=== PATIENT | male | born 1990 | race Caucasian/White ===

== ENCOUNTER 2017-05-20 08:49 | Inpatient (IN) ==
[2017-05-20] MEDS ORDERED: NS 1,000 ML IV ONE (09:34)
[2017-05-20] MEDS ORDERED: HUMULIN R IV ONE (09:34)
[2017-05-20 09:45] LABS: URINE MICRO REVIEW NEEDED? NO; URINE SOURCE CLEAN CATCH
[2017-05-20 09:48] LABS: ALLEN TEST YES; BE 11.1 mmoll (-3.0-3.0); BLOOD TYPE ARTERIAL; DRAW SITE R RADIAL; METHB 1.3 % (0.0-1.5); O2(CT) 19.3 mL/dL (15.0-23.0); PCO2(98.6) 46 mmHg (35-45); PO2(98.6) 83 mmHg (60-100); SAMPLE BLOOD; SAO2 98.9 % (95.0-100.0); THB 14.4 g/dL (11.5-17.4)
[2017-05-20 09:49] LABS: MODALITY ROOM AIR
[2017-05-20 09:49] LABS: BILIRUBIN URINE NEGATIVE (NEGATIVE); BLOOD URINE SMALL (NEGATIVE); COLOR YELLOW; GLUCOSE URINE >1000 mg/dL (NEGATIVE); LEUKOCYTES URINE LARGE (NEGATIVE); NITRITE URINE NEGATIVE (NEGATIVE); PH URINE 5.5; PROTEIN URINE 70 mg/dL (NEGATIVE); SP GRAVITY URINE 1.017; TURBIDITY URINE HAZY (CLEAR); UR EPITHELIAL CELLS <10 /HPF (<10); URINE BACTERIA 4+ /HPF; URINE CULTURE NEEDED? YES; URINE RBC <10 /HPF (<10); URINE WBC TNTC /HPF (<10); UROBILINOGEN URINE NORMAL (NORMAL)
[2017-05-20 09:54] LABS: BASO% 0.1 % (0.0-0.8); EOS# 0.03 X1000 (0.0-0.7); EOS% 0.2 % (0.0-10.0); HEMATOCRIT 38.2 % (42.0-52.0); HEMOGLOBIN 14.4 g/dL (14.0-18.0); IMM GRAN# 0.03 X1000 (0.0-0.04); IMM GRAN% 0.2 % (0.0-0.5); LYMPH# 1.07 X1000 (1.2-3.4); LYMPH% 7.4 % (20.5-51.1); MANUAL DIFF NEEDED? NO; MCH 29.1 PG (27-31); MCHC 37.7 g/dL (33-37); MCV 77.2 FL (81-99); MONO# 1.39 X1000 (0.11-0.59); MONO% 9.6 % (1.7-9.3); MPV 12.1 FL (7.4-10.4); NEUT% 82.5 % (42.2-75.2); PLT 340 X1000 (130-400); RBC 4.95 XMIL (4.7-6.1)
[2017-05-20] MEDS ORDERED: ROCEPHIN 1 GM in NS 50 ML IV ONE (10:02)
[2017-05-20 10:25] LABS: AGAP 16; ALKALINE PHOSPHATASE 115 U/L (32-122); BUN 26 mg/dL (8-22); CALCIUM 9.5 mg/dL (8.8-10.2); CHLORIDE 82 mmol/L (98-107); COSMO 280; GOT 16 U/L (10-34); GPT 16 U/L (10-44); SODIUM 129 mmol/L (136-145); TCO2 31 mmol/L (25-35); TOTAL BILIRUBIN 0.45 mg/dL (0.20-1.00)
[2017-05-20 10:47] LABS: POTASSIUM 2.5 mmol/L (3.5-5.1)
[2017-05-20 10:50] LABS: ACETONE SERUM MODERATE (NEGATIVE)
[2017-05-20] MEDS ORDERED: NS + KCL 20 MEQ 1,000 ML IV SCH (10:53)
[2017-05-20] MEDS ORDERED: ZOFRAN IV ONE (11:05)
--- NOTE | 2017-05-20 11:12 | PROVIDER DOCUMENTATION ---
This chart was entered by Merry Lorenzana Scribe, acting as scribe for Sachin Sen PA. HPI-General Adult - General Chief Complaint: High Blood Sugar Stated Complaint: "NOT SURE IF SUGAR IS HIGH OR LOW" Time Seen by Provider: 05/20/17 09:23 Source: patient Allergies/Adverse Reactions: Patient Allergies Allergy/AdvReac Type Severity Reaction Status Date / Time piperacillin sodium * Allergy Intermediate HIVES Verified 05/20/17 09:38 [From Zosyn] tazobactam sodium * Allergy Intermediate HIVES Verified 05/20/17 09:38 [From Zosyn] Home Medications: Home Medication List Medication Instructions Recorded Confirmed Last Taken Type Gabapentin [Neurontin] 100 mg PO TID@0900,1500,2100 #90 12/23/15 Unknown Rx capsule Insulin Detemir [Levemir] 45 unit SUBQ BID #1 insuln.pen 12/23/15 Unknown Rx Magnesium Oxide [Mag-Ox] 400 mg PO BID #60 tablet 12/23/15 Unknown Rx Oxybutynin E.r. [Ditropan Xl] 5 mg PO QHS #30 tablet 12/23/15 Unknown Rx Valproic Acid [Depakene Liquid] 250 mg PO BID #60 udc 12/23/15 Unknown Rx Azithromycin [Zithromax Z-Sherif] 250 mg PO DIRECTED #1 pkg 02/03/17 Unknown Rx Ketorolac [Toradol] 10 mg PO Q6H PRN PRN #6 tablet 02/03/17 Unknown Rx - History of Present Illness -Gen Adult Nature of Presenting Problems: Pt is a 27 year old male who came to the ED with a cc of high blood sugar and n/ v for three days. Pt reports that he hasn't been taking his insulin since he started his new job. Pt checked his blood sugar this morning and it was 500. . Location of Pain/Injury: reports: none Pain Radiation: reports: no radiation Quality of Pain: reports: none Severity: reports: mild Onset/Duration: reports: 3 days ago Timing: reports: still present Context/Activities at Onset: reports: none Modifying Factors: improves with: nothing Associated Symptoms: reports: nausea, vomiting Similar Symptoms Previously?: Yes Recently seen or treated by another doctor?: No - Diabetes Related Context Context: reports: high blood sugar Review of Systems - Adult - REVIEW OF SYSTEMS - ADULT Constitutional: denies: chills, fever Eyes: reports: no symptoms reported Ears, Nose, Mouth & Throat: reports: no symptoms reported Cardiovascular: reports: irregular heart rate. denies: chest pain, orthopnea Respiratory: reports: no symptoms reported Gastrointestinal: reports: nausea, vomiting. denies: abdominal pain, diarrhea Genitourinary: reports: no symptoms reported Musculoskeletal: reports: no symptoms reported Integumentary: reports: no symptoms reported Neurological: reports: no symptoms reported Psychiatric: reports: no symptoms reported Endocrine: reports: other (high blood sugar). denies: cold intolerance, heat intolerance Hematologic/Lymphatic: reports: no symptoms reported Allergic/Immunologic: reports: no symptoms reported All Other Systems: Reviewed and Negative Past History - Adult - PAST MEDICAL HISTORY-ADULT Review of Records: reports: Nursing Assessment Review Major Childhood Illnesses: reports: denies history Cardiovascular: reports: denies history Respiratory: reports: denies history Gastrointestinal: reports: denies history Obstetrical/Gynecological: reports: denies history Genitourinary: reports: denies history Musculoskeletal: reports: denies history Neurological: reports: denies history Endocrine/Immune: reports: Diabetes Other Conditions: reports: denies history - IMMUNIZATION STATUS Childhood Immunizations: See Nurse Assessment Flu Vaccine: See Nurse Assessment - FAMILY HISTORY Family History: reviewed, not pertinent Physical Exam-General - PHYSICAL EXAM-ADULT Initial Vital Signs Reviewed: Yes - CONSTITUTIONAL General Appearance: appears well, alert, no apparent distress - EYES Eyes: PERRL/EOMI, pink conjunctivae - HEAD, EARS, NOSE, MOUTH & THROAT HENMT: normocephalic/atraumatic, moist mucous membranes - NECK Neck: non-tender, full range of motion - RESPIRATORY Respiratory: chest non-tender, lungs clear, normal breath sounds - CARDIOVASCULAR Cardiovascular: tachycardia - GASTROINTESTINAL (ABDOMEN) Abdominal Exam: normal bowel sounds, non tender, soft - MUSCULOSKELETAL Back Exam: normal inspection, no CVA tenderness Extremity: normal range of motion, non-tender - SKIN Integumentary: normal color, normal turgor - NEUROLOGIC Neurologic: grossly normal - PSYCHIATRIC Psych/Mental Status: normal mood/affect, normal thought content, normal thought process, oriented x 3 Progress - PLAN OF CARE/RESULTS Progress/Plan/Lab Results: Vital Signs - 8 hr 05/20/17 08:58 Temperature 98.0 F Pulse Rate 98 H Respiratory Rate 20 Blood Pressure 172/104 O2 Sat by Pulse Oximetry 100 Laboratory Results - last 24 hr 05/20/17 05/20/17 05/20/17 09:00 09:17 09:17 WBC 14.41 H RBC 4.95 Hgb 14.4 Hct 38.2 L MCV 77.2 L MCH 29.1 MCHC 37.7 H RDW Std Deviation 12.1 Plt Count 340 MPV 12.1 H Immature Gran % (Auto) 0.2 Neut % (Auto) 82.5 H Lymph % (Auto) 7.4 L [place] % (Auto) 9.6 H Eos % (Auto) 0.2 Baso % (Auto) 0.1 Immature Gran # (Auto) 0.03 Neut # (Auto) 11.88 H Lymph # (Auto) 1.07 L [place] # (Auto) 1.39 H Eos # (Auto) 0.03 Baso # (Auto) 0.01 Specimen Type Sample Site pH pCO2 pO2 HCO3 Base Excess Oxyhemoglobin ABG O2 Sat (Calculated) ABG O2 Saturation ABG Carboxyhemoglobin ABG Methemoglobin J Carlos Test A-a O2 Difference Total Hemoglobin Lactate Blood Gas Modality FiO2 % Sodium 129 L Potassium 2.5 L* Chloride 82 L Carbon Dioxide 31 Anion Gap 16 BUN 26 H Creatinine 1.3 H Estimated GFR/1.73 m2 > 60 BUN/Creatinine Ratio 20 Glucose 386 H POC Glucose 420 H D Calculated Osmolality 280 Calcium 9.5 Total Bilirubin 0.45 AST 16 ALT 16 Alkaline Phosphatase 115 Total Protein 7.0 Albumin 4.0 Globulin 3.0 Albumin/Globulin Ratio 1.3 Urine Source Urine Color Urine Turbidity Urine pH Ur Specific [place] Urine Protein Ur Glucose (Stick) Ur Ketones (Stick) Urine Blood Urine Nitrite Urine Bilirubin Urobilinogen Dipstick Urine Leukocytes Urine WBC (Auto) Urine RBC (Auto) U Epithel Cells (Auto) Urine Bacteria (Auto) Acetone Level MODERATE A 05/20/17 05/20/17 09:17 09:35 WBC RBC Hgb Hct MCV MCH MCHC RDW Std Deviation Plt Count MPV Immature Gran % (Auto) Neut % (Auto) Lymph % (Auto) [place] % (Auto) Eos % (Auto) Baso % (Auto) Immature Gran # (Auto) Neut # (Auto) Lymph # (Auto) [place] # (Auto) Eos # (Auto) Baso # (Auto) Specimen Type ARTERIAL Sample Site R RADIAL pH 7.50 H pCO2 46 H pO2 83 HCO3 33.5 H Base Excess 11.1 H Oxyhemoglobin 95.1 ABG O2 Sat (Calculated) 19.3 ABG O2 Saturation 98.9 ABG Carboxyhemoglobin 2.60 H ABG Methemoglobin 1.3 J Carlos Test YES A-a O2 Difference 9.0 Total Hemoglobin 14.4 Lactate 0.90 Blood Gas Modality ROOM AIR FiO2 % 21.0 Sodium Potassium Chloride Carbon Dioxide Anion Gap BUN Creatinine Estimated GFR/1.73 m2 BUN/Creatinine Ratio Glucose POC Glucose Calculated Osmolality Calcium Total Bilirubin AST ALT Alkaline Phosphatase Total Protein Albumin Globulin Albumin/Globulin Ratio Urine Source CLEAN CATCH Urine Color YELLOW Urine Turbidity HAZY Urine pH 5.5 Ur Specific [place] 1.017 Urine Protein 70 A Ur Glucose (Stick) >1000 A Ur Ketones (Stick) 20 A Urine Blood SMALL A Urine Nitrite NEGATIVE Urine Bilirubin NEGATIVE Urobilinogen Dipstick NORMAL Urine Leukocytes LARGE A Urine WBC (Auto) TNTC A Urine RBC (Auto) <10 U Epithel Cells (Auto) <10 Urine Bacteria (Auto) 4+ Acetone Level Orders Category Date Time Status Saline Loc NOW Care 05/20/17 09:25 Active ABG [RESP] Routine Lab 05/20/17 09:35 Completed ACETONE SERUM [CHEM] Stat Lab 05/20/17 09:17 Completed CBC WITH ELECTRONIC DIFF [HEME] Stat Lab 05/20/17 09:17 Completed COMPREHENSIVE METABOLIC PANEL [CHEM] Stat Lab 05/20/17 09:17 Completed URINALYSIS W/POSS RFLX CULT-1 [URINALYSIS] Stat Lab 05/20/17 09:17 Completed URINE CULTURE [RM] Routine Lab 05/20/17 09:52 Received 0.9% Sodium Chloride Inj [Ns] 1,000 ml Med 05/20/17 09:34 Discontinued IV 999 mls/hr CefTRIAXONE [Rocephin] 1 gm Med 05/20/17 10:02 Discontinued 0.9% Sodium Chloride Inj [Ns] 50 ml IV NOW Insulin Human Regular [Humulin R] Med 05/20/17 09:34 Discontinued 10 unit IV NOW ONE Ns + KCl 20 Meq 1,000 ml Med 05/20/17 10:53 Ordered IV 500 mls/hr Will admit to hospitalist service. Attending in agreement. Result Diagrams: 05/20/17 09:17 05/20/17 09:17 - CONSULTS/PCP/HOSPITALIST Notification #1 *Consult/PCP/Hospitalist*: Hospitalist service Time Discussed: 11:10 Consult Disposition: Admit Departure - Departure Date of Disposition Decision: 05/20/17 Time of Disposition Decision: 11:11 DIAGNOSIS: Hyperglycemia, Hypokalemia, Hyponatremia, Dehydration UTI (urinary tract infection) Qualifiers: Urinary tract infection type: site unspecified Hematuria presence: without hematuria Qualified Code(s): N39.0 - Urinary tract infection, site not specified Disposition: ADMITTED INPATIENT 09 Certified Medical Emergency: Emergent Condition: Stable Referrals and Follow-Ups: Tristen Galeas [Primary Care Provider] - - Critical Care Note This patient required my direct & personal management of CC.: No Attestation - Physician/ MARTINA Attestation Patient care was provided by Advanced Practice Provider:: Yes Advanced Practice Provider:: Sachin Sen Advanced Practice Provider documentation review:: The Mid-level provider documentation, treatment plan and medical decision making was reviewed by the physician who agrees with all treatment and medical decision making by the MLP. The physician spent face to face time with patient:: Yes Advanced Practice Provider documentation review:: Supervising physician onsite and consulted in the evaluation and care of this patient. The physician did have a face to face encounter with the patient. This chart was documented by the indicated scribe, (Merry Lorenzana Scribe) and accurately reflects the services I performed and decisions made by me, Sachin Sen PA, as attested by the provider's signature.
--- NOTE | 2017-05-20 11:34 | Diag Imaging Result Doc PS360 ---
EXAM: FLAT/UPRIGHT ABD/1 VIEW CHEST - 05/20/2017 HISTORY: sepsis TECHNIQUE: Portable supine and upright abdomen one view chest COMPARISON: Chest two views of 12/22/2015 FINDINGS: There are gas and retained fecal debris visible in nondistended colon. There is some small bowel gas visible but there is no substantial gaseous small bowel distention identified. There is no free air identified. There are surgical clips at the right lower quadrant. Upright chest shows normal heart size. The lungs appear clear. There is no pleural effusion or pneumothorax identified. The previous PICC has been removed. IMPRESSION: Nonspecific bowel gas pattern. No evidence of acute cardiopulmonary disease. Electronically signed by Jasen Ortiz 05/20/2017 11:32 AM
[2017-05-20] MEDS ORDERED: MAGNESIUM SULFATE 4 GM/S.W.I. 4 GM/100 ML IVPB IV ONE (11:59)
[2017-05-20] MEDS ORDERED: ZOFRAN IV PRN (13:44)
[2017-05-20 14:18] LABS: UR AMPHETAMINES QUAL NONE DETECTED (NONE DETECT); UR BARBITUATES QUAL NONE DETECTED (NONE DETECT); UR BENZODIAZEPIN QUAL NONE DETECTED (NONE DETECT); UR CANNABINOIDS QUAL NONE DETECTED (NONE DETECT); UR COCAINE QUAL NONE DETECTED (NONE DETECT); UR METHADONE QUAL NONE DETECTED (NONE DETECT); UR OPIATES QUAL NONE DETECTED (NONE DETECT); UR OXYCODONE QUAL PRESUMPTIVE POSITIVE (NONE DETECT); UR PCP QUAL NONE DETECTED (NONE DETECT)
[2017-05-20] MEDS: PROTONIX IV SCH (14:21)
[2017-05-20] MEDS: NS 1,000 ML IV SCH ×3 (14:21→22:11)
[2017-05-20] MEDS: SODIUM CHLORIDE 0.9% INJ SCH (14:21)
[2017-05-20 14:46] LABS: HEMOGLOBIN A1C 15.1 % (4.8-6.0)
[2017-05-20 15:15] LABS: AGAP 18; BUN 21 mg/dL (8-22); CALCIUM 9.2 mg/dL (8.8-10.2); CHLORIDE 87 mmol/L (98-107); COSMO 278; MAGNESIUM 2.2 mg/dL (1.5-2.7); POTASSIUM 2.6 mmol/L (3.5-5.1); SODIUM 132 mmol/L (136-145); TCO2 27 mmol/L (25-35)
[2017-05-20] MEDS ORDERED: POTASSIUM PHOSPHATE 30 MMOL in NS 250 ML IV ONE (16:00)
--- NOTE | 2017-05-20 17:20 | HISTORY AND PHYSICAL ---
CHIEF COMPLAINT: Abdominal pain. HISTORY OF PRESENT ILLNESS: Mr. Boggs is a 27-year-old male with a history of type 1 diabetes and medical noncompliance who comes in the ER today with 3 days of nausea and vomiting Mr. Boggs states that he is not doing any kind of treatment for his diabetes over the past few months, this includes not checking his blood sugar or even taking insulin. A few days ago he checked his blood sugar and it was greater than 600 which prompted him to give himself 15 units of NovoLog, subsequent recheck continued to be over 600 and he gave himself 30 more units till it came down to below 600, around 500 or so. He started a new job today at [employer] and began to have vomiting and came to the ER for evaluation. In the ER he was noted to have a white count with hypokalemia and hypomagnesemia, he had mildly elevated renal function but no diagnostic data DKA is noted. He has been given IV insulin and he is now going to be admitted for further treatment and evaluation. PAST MEDICAL HISTORY: 1. Diabetes mellitus type 1. 2. Medical noncompliance. PAST SURGICAL HISTORY: He has had an appendectomy. SOCIAL HISTORY: He is with no children, he started working [employer] today, he denies tobacco. Alcohol or drug use. ALLERGIES: Zosyn. HOME MEDICATIONS: Currently being compiled. REVIEW OF SYSTEMS: Ten point review of systems obtained and found to be negative with the exception of the HPI. PHYSICAL EXAMINATION: VITAL SIGNS: Blood pressure is 147/87, heart rate 76, respiratory 16, O2 saturation 100% on room air, temperature is 98 degrees. GENERAL: Well developed, well nourished male lying in hospital bed. No acute distress. NEUROLOGIC: The patient is awake, alert and oriented. He follows commands without focal deficits. HEENT: Head is atraumatic, normocephalic. His pupils are equal, round, reactive to light. Oral mucosa is dry. Trachea is midline. Neck is supple. CHEST: Clear to auscultation bilaterally. CV: Tachy but regular, S1-S2 is noted. No murmurs, no lower extremity edema, no JVD. GI: Soft, nondistended, nontender. Bowel sounds positive. EXTREMITIES: No edema. No clubbing or cyanosis. Pulses palpable bilaterally. DIAGNOSTIC DATA: Chest and abdomen x-ray negative. WBC 14.4, hemoglobin 14.4 , hematocrit 38.2, platelets 340,000. ABG on room air pH 7.5, CO2 46, bicarb 33.5. Sodium 129, potassium 2.5, chloride 82, CO2 31, anion gap 16, BUN 26, creatinine 1.3, glucose is 386, magnesium 1.2 LFTs all within normal limits. UA shows large leukocyte, TNTC WBC and 4+ bacteria, acetone level moderate. ASSESSMENT/PLAN: 1. Nausea and vomiting: Unclear as to exact etiology, however, hyperglycemia, viral gastroenteritis, UTI and drug effect are all differentials. His abdomen is soft, abdomen x-ray does not reveal anything acute. He is actually feeling better since he has gotten insulin and fluids in the emergency room. Will admit him for observation status, continue IV fluids and restart his medications. 2. Hyperglycemia: No signs of diabetic ketoacidosis, in fact, he has diabetic ketoalkalosis 2/2 volume contraction and loss of hydrogen via n/v. The serum acetone is likely explained by a mild starvation ketosis. He will need aggressive fluid resuscitation and only continuation of his home insulin. Placing him on an insulin gtt puts him at high risk of hypoglycemia and hypokalemia. We will watch his electrolytes closely. 3. Early sepsis/UTI: Patient actually meets criteria with tachycardia, leukocytosis and urinary tract infection. We are going to obtain blood cultures and continue Rocephin , aggressive fluid resuscitation has been ordered as well. 4. Multiple electrolyte abnormalities: Patient is hypokalemic and hypomagnesemic. We will replace those and recheck a BMP at 5 o'clock this afternoon. 5. Renal insufficiency: Clearly prerenal. Continue fluids, avoid nephrotoxins and check a BMP in the morning. 6. Profound medical noncompliance: Patient has been highly advised on the importance of checking his blood sugar 4 times a day and following insulin regimen prescribed by his physician. We will order diabetic education. 7. Deep vein thrombosis prophylaxis with Lovenox. Further recommendations to follow. Dictated by TIFFANIE Mchugh for Jeffrey Quijano MD cc: Tristen Galeas Jr, MD Raphael K. Quansah, MD I have seen and examined patient and provided face to face evaluation. Patient presents with nausea and vomiting and exams consistent with severe volume depletion. will continue with the above plan outlined. Medication compliance has been over emphasized with patient. BETHANY MTDD
[2017-05-20] MEDS: HUMALOG SUBQ SCH ×2 (18:12→20:59)
[2017-05-20] MEDS ORDERED: INSULIN PEN NEEDLES ONE (20:09)
[2017-05-20] MEDS: LANTUS SUBQ SCH (21:00)
[2017-05-20] MEDS ORDERED: HUMALOG IV ONE (23:22)
[2017-05-21] MEDS: NS 1,000 ML IV SCH ×6 (02:30→23:49)
[2017-05-21 06:07] LABS: HEMATOCRIT 36.1 % (42.0-52.0); HEMOGLOBIN 13.1 g/dL (14.0-18.0); MCH 29.6 PG (27-31); MCHC 36.3 g/dL (33-37); MCV 81.5 FL (81-99); MPV 12.3 FL (7.4-10.4); RBC 4.43 XMIL (4.7-6.1)
[2017-05-21] MEDS: HUMALOG SUBQ SCH ×4 (06:20→21:22)
[2017-05-21 06:38] LABS: AGAP 11; BUN 15 mg/dL (8-22); CALCIUM 8.1 mg/dL (8.8-10.2); CHLORIDE 99 mmol/L (98-107); COSMO 282; SODIUM 140 mmol/L (136-145); TCO2 30 mmol/L (25-35)
[2017-05-21 06:42] LABS: POTASSIUM 2.5 mmol/L (3.5-5.1)
[2017-05-21] MEDS ORDERED: NS + KCL 40 MEQ 1,000 ML IV SCH ×2 (06:45→07:15)
[2017-05-21] MEDS ORDERED: KLOR-CON PO ONE ×2 (06:47→16:23)
[2017-05-21] MEDS: POTASSIUM CHLORIDE 20 MEQ/SWI 20 MEQ/100 ML IVPB IV SCH ×2 (08:05→10:38)
[2017-05-21] MEDS: LANTUS SUBQ SCH ×2 (08:06→22:08)
[2017-05-21] MEDS ORDERED: ROCEPHIN 1 GM in NS 50 ML IV SCH (10:00)
[2017-05-21] MEDS: FOLIC ACID PO SCH (10:38)
[2017-05-21] MEDS: SODIUM CHLORIDE 0.9% INJ SCH (13:37)
[2017-05-21] MEDS: PROTONIX IV SCH (13:37)
--- NOTE | 2017-05-21 13:54 | PROGRESS NOTE ---
DATE: 05/21/2017 SUBJECTIVE: Today Mr. Boggs refers to be doing a lot better. Urination has subsided and he feels a lot stronger. OBJECTIVE: Vital signs: Blood pressure is 139/88, pulse 86, respiration is 16, temperature is 99.0 degrees, patient is saturating 100% on room air. General: Mr. Boggs 27- year-old male. He is in bed, not in any distress. HEENT: Mucosa is pink and moist. Anicteric. Acyanotic. Neck: Supple. Chest: Clear. Cardiovascular: Regular rate and rhythm. There is no murmurs, no rubs, no gallops. Abdomen: Soft, nontender. Bowel sounds are present. There is no hepatosplenomegaly. Extremities: No pedal edema. Distal pulses are present. ACCESS CONTROL OFFICER: Patient is awake, alert and oriented x4. There is no focal neurological deficit. LABORATORY DATA: WBC is down to 9.23, hemoglobin is 13.1, platelet count is 300 ,000. Chemistry is also reviewed significantly potassium is 2.5. Folate is 5.0. Urine is positive for gram- negative amina. ASSESSMENT: 1. Nausea and vomiting resolved. 2. Gram-negative amina urinary tract infection. Patient is currently on ceftriaxone. 3. Severe uncontrolled diabetes mellitus on presentation improved. 4. Acute kidney injury secondary to dehydration improved. 5. Folate deficiency. We will start replacement. 6. Hypokalemia. This has been replaced early on this morning. We are pending a repeat to see if he needs more replacement. So in general I think Mr. Boggs is clinically stable. We are pending the ID and sensitivity on the gram negative amina in the urine to transition to oral coverage, we are also repeating his potassium this afternoon to see where it is. cc: Jeffrey Quijano MD MTDD
[2017-05-21] MEDS: NEURONTIN PO SCH ×2 (14:19→21:24)
[2017-05-21] MEDS: MIRALAX PO SCH (15:06)
[2017-05-21] MEDS: DEPAKENE LIQUID PO SCH (22:08)
[2017-05-22] MEDS: NS 1,000 ML IV SCH ×6 (04:12→21:53)
[2017-05-22 06:26] LABS: HEMATOCRIT 36.5 % (42.0-52.0); HEMOGLOBIN 12.9 g/dL (14.0-18.0); MCH 29.1 PG (27-31); MCHC 35.3 g/dL (33-37); MCV 82.4 FL (81-99); RBC 4.43 XMIL (4.7-6.1)
[2017-05-22] MEDS: HUMALOG SUBQ SCH ×4 (06:28→21:56)
[2017-05-22 06:51] LABS: AGAP 11; BUN 15 mg/dL (8-22); CALCIUM 8.2 mg/dL (8.8-10.2); CHLORIDE 102 mmol/L (98-107); COSMO 286; POTASSIUM 2.9 mmol/L (3.5-5.1); SODIUM 140 mmol/L (136-145); TCO2 27 mmol/L (25-35)
[2017-05-22] MEDS ORDERED: MAGNESIUM SULFATE 4 GM/S.W.I. 4 GM/100 ML IVPB IV ONE (07:42)
[2017-05-22] MEDS: LANTUS SUBQ SCH ×2 (08:15→21:53)
[2017-05-22] MEDS: FOLIC ACID PO SCH (08:16)
[2017-05-22] MEDS: DEPAKENE LIQUID PO SCH ×2 (08:17→21:53)
[2017-05-22] MEDS: MIRALAX PO SCH (08:17)
[2017-05-22] MEDS: NEURONTIN PO SCH ×3 (08:17→21:53)
[2017-05-22] MEDS: POTASSIUM CHLORIDE 20 MEQ/SWI 20 MEQ/100 ML IVPB IV SCH ×2 (09:20→15:53)
[2017-05-22] MEDS: SODIUM CHLORIDE 0.9% INJ SCH (13:15)
[2017-05-22] MEDS: PROTONIX IV SCH (13:15)
[2017-05-22] MEDS: MERREM 500 MG in NS 50 ML IV SCH ×2 (13:15→17:55)
--- NOTE | 2017-05-22 16:39 | PROGRESS NOTE ---
DATE: 05/22/2017 SUBJECTIVE: Today Mr. Boggs referred to be doing fairly okay, denies of any acute complaints. OBJECTIVE: Vital signs: Blood pressure is 149/61, pulse of 81, respiration is 18, temperature is 98.1 degrees, patient is saturating 97% on room air. General: Mr. Boggs 27-year-old male. He is in bed, is not in any distress. HEENT: Mucosa is pink and moist. Anicteric. Acyanotic. Neck: Supple. Chest: Clear. Cardiovascular: Regular rate and rhythm. No murmurs, no rubs. No gallops. Abdomen: Soft, nontender. Bowel sounds are present. Extremities: No pedal edema. HYDRAULIC JACK MECHANIC: Patient is awake and alert and oriented x4. There is no focal neurological deficit. LABORATORY DATA: WBC 8.55, hemoglobin is 12.9, platelet count of 302,000. Chemistry is also reviewed, potassium was 2.9 and magnesium was 0.8. Microbiology indicates Klebsiella oxytoca which is ESBL. ASSESSMENT: 1. Nausea and vomiting on presentation resolved. 2. Klebsiella oxytoca extended spectrum beta-lactamase urinary tract infection. Patient was on ceftriaxone seems to have been improving however we switched this to meropenem and we have consulted ID. 3. Severe uncontrolled diabetes mellitus on presentation improved. 4. Acute kidney injury secondary to dehydration improved. 5. Folate deficiency. Will continue to replace. 6. Hypokalemia and critical hypomagnesemia. Will replace this and repeat the test for this afternoon. So in general I think Mr. Boggs is relatively stable. ID is going to review him, if they recommend a p.o. medication for the UTI we will do that, will also repeat the magnesium and potassium for later this afternoon and replace accordingly. Hopefully we can get Mr. Boggs =home tomorrow. cc: Jeffrey Quijano MD
--- NOTE | 2017-05-22 18:20 | CONSULTATION ---
DATE OF CONSULTATION: 05/22/2017 CONCLUSION: The patient has an extended spectrum beta lactamase producing Klebsiella urinary tract infection. RECOMMENDATIONS: I have discontinued meropenem and placed the patient on Septra. DISCUSSION: The patient was admitted with elevated glucose. He did not complain of any dysuria or flank pain. He did not have any fever or chills. His urine is growing an extended spectrum beta lactamase producing Klebsiella. CBC shows a white count of 8530, hemoglobin 12.9, and platelet count 302,000. Creatinine is 1. GFR is greater than 60. Chest x-ray and abdominal x- ray showed no acute disease. PAST MEDICAL HISTORY/REVIEW OF SYSTEMS: Eyes and ears: He denies difficulty hearing or seeing. Neck: No stiffness. Respiratory: No cough. Patient states that when he eats he gets heartburn and he feels a little short of breath. Cardiac: No chest pain or palpitations. GI: Patient intermittently has decreased frequency of passing a stool. This has been going on for a long time. Genitourinary: See present illness. Endocrine: Patient has diabetes but not thyroid disease. Bones,joints, muscles: He is not complaining of any swollen joints or muscle pain. Neurologic: The patient does not have any headaches, he does not have any loss of motor function. Patient tells me a year ago when he came in the hospital he had a couple of episodes of where he was shaking, he was fully awake and he thinks they only lasted a minute or 2. Integument: No rash. PREVIOUS HOSPITALIZATIONS AND OPERATIONS: He has had an appendectomy. MEDICAL DISEASES: Positive for diabetes mellitus. The patient says that he has been told at times his blood pressure was up but he does not take any medication and has not been monitoring his blood pressure. INFECTIOUS DISEASE HISTORY: Negative for pneumonia and UTI. FAMILY HISTORY: Positive for hypertension. SOCIAL HISTORY: [place] He does not smoke cigarettes or drink alcoholic beverages. He is allergic to Zosyn manifested by a rash. He takes insulin, he says he works at [employer]. PHYSICAL EXAMINATION: Vital signs: Temperature is 97.6 degrees, pulse 94, respirations 18, blood pressure 149/81. General: This is a slightly obese young male who is in no acute distress. Head, eyes, ears, nose, and throat: He can hear my spoken words see near objects. No drainage noted from the nose or ears. Neck: No meningismus. Thorax: No increased AP diameter of the chest. Lungs: Clear to auscultation. Cardiovascular: Regular heart rate. Abdomen And flanks: Soft and nontender. Neurologic: Patient is alert. He can move his extremities. There is no tremor. His sensation is intact to touch. His memory, as regarding his medical history is intact. Thank you for the consult. cc: Anthony More MD
[2017-05-22] MEDS: SEPTRA DS PO SCH (22:33)
[2017-05-23] MEDS: NS 1,000 ML IV SCH ×3 (01:49→10:18)
[2017-05-23] MEDS: HUMALOG SUBQ SCH ×2 (06:02→11:16)
[2017-05-23 07:06] LABS: HEMOGLOBIN 14.1 g/dL (14.0-18.0); MCH 29.6 PG (27-31); MCHC 35.3 g/dL (33-37); MCV 83.9 FL (81-99); MPV 11.9 FL (7.4-10.4); RBC 4.77 XMIL (4.7-6.1)
[2017-05-23 07:29] VITALS: BP 152/94
[2017-05-23 07:29] LABS: AGAP 13; BUN 15 mg/dL (8-22); CALCIUM 8.4 mg/dL (8.8-10.2); CHLORIDE 99 mmol/L (98-107); COSMO 287; POTASSIUM 3.6 mmol/L (3.5-5.1); SODIUM 142 mmol/L (136-145); TCO2 30 mmol/L (25-35)
[2017-05-23] MEDS: DEPAKENE LIQUID PO SCH (08:16)
[2017-05-23] MEDS: FOLIC ACID PO SCH (08:17)
[2017-05-23] MEDS: LANTUS SUBQ SCH (08:17)
[2017-05-23] MEDS: NEURONTIN PO SCH (08:17)
[2017-05-23] MEDS: MIRALAX PO SCH (08:17)
[2017-05-23] MEDS: SEPTRA DS PO SCH (08:19)
[2017-05-23] MEDS ORDERED: MAGNESIUM SULFATE 2 GM/S.W.I. 2 GM/50 ML IVPB IV ONE (09:00)
[2017-05-23] MEDS: SODIUM CHLORIDE 0.9% INJ SCH (12:30)
[2017-05-23] MEDS: PROTONIX IV SCH (12:30)
[2017-05-23] MEDS ORDERED: MAG-OX PO SCH (21:00)
--- NOTE | 2017-05-24 06:07 | DISCHARGE SUMMARY ---
ADMISSION DATE: 05/20/2017 DISCHARGE DATE: 05/23/2017 DISPOSITION: Home. FOLLOWUP: Will be with the patient's PCP, Dr. Tristen Galeas, and also with Dr. More. CONSULTATIONS DURING THIS ADMISSION: ID was consulted. Patient was seen by Dr. More. INVASIVE PROCEDURES DONE DURING THIS ADMISSION: None. ADMISSION DIAGNOSES: 1. Nausea and vomiting. 2. Hyperglycemia. 3. Early sepsis/urinary tract infection. 4. Multiple electrolyte abnormalities. 5. Medical noncompliance. DIAGNOSES AT THE TIME OF DISCHARGE: 1. Nausea and vomiting on presentation, resolved. 2. Klebsiella oxytoca extended-spectrum B-lactamase urinary tract infection. 3. Severe uncontrolled diabetes mellitus on presentation with an A1c of 15.1. 4. Acute kidney injury secondary to dehydration, improved. 5. Folate deficiency, replaced. 6. Hypokalemia with critical hypomagnesemia, improved. 7. Medical noncompliance. DISCHARGE MEDICATIONS: 1. Valproic acid. 2. Gabapentin 100 three times per day. 3. Insulin glargine 20 units subcutaneous b.i.d. 4. Bactrim 1 tablet q.12. 5. Folic acid 1 mg daily. 6. Magnesium 400 b.i.d. PRESENTING COMPLAINT: Abdominal pain. HISTORY OF PRESENT COMPLAINT: Mr. Boggs is a 27-year-old, male with a history of diabetes type 1 who is very noncompliant. Presented to the emergency department because of nausea and vomiting. The patient was evaluated. Was found to have extremely high blood glucose and urine was dirty. He was subsequently admitted for further medical care. HOSPITAL COURSE: The patient was admitted. Was adequately hydrated. Nausea and vomiting improved. Was started on some feeding which he tolerated. Subsequently, the urine culture came back positive for ESBL. ID was consulted. Patient was seen by Dr. More and changes were made to his antibiotics and was put on p.o. Bactrim. The patient was also found to have critical hypomagnesemia. This was treated and started also on some p.o. replacement. Potassium got replaced and became normal on the day of admission. Patient has been counseled on all the encounters about medication compliance. He is clinically stable. His vitals have been reviewed today and are completely unremarkable. His lab works have also been reviewed today and are completely unremarkable. He is going to be discharged home on a diabetic diet to follow up with his primary care doctor, Dr. Tristen Galeas, and also with ID, Dr. More. DISCHARGE INSTRUCTIONS: All the discharge instructions have been discussed with the patient. All medications, side effects have also been addressed. The patient has been advised to come to the emergency room or call 911 if anything acutely happens. The patient is also going to follow up with the diabetes education at [facility]. Information has already been given to him by the social workers. Time spent for discharge is 37 minutes. cc: Jeffrey Quijano MD
== END 2017-05-23 13:02 | disposition home or self-care (01) ==
LOC: ED 08:49 → 4N 13:07 → 3N 05-22 08:33
PROVIDERS: ATTEND Internal Medicine